=== PATIENT | male | born 1950 | race Caucasian/White ===

== ENCOUNTER → 2016-05-12 | Outpatient (CLI) | payer MEDICARE, OTHER ==
[~2016-05-12] MED LIST: ASA CHILDREN'S81 MG PO; CELEBREX200 MG PO; MIRALAX PACKET17 GM PO; OXY IR DPS5 MG PO; SENOKOT S1 TAB PO; THERAPEUTIC MUL1 TAB PO; TUMS DPS500 MG PO; TYLENOL DPS325 MG PO; ULTRAM DPS50 MG PO; XARELTO10 MG PO
== END | disposition home or self-care (01) ==
LOC: PTH.S 09:43
DX: Z01.812 Encounter for preprocedural laboratory examination (principal)

== ENCOUNTER 2016-05-20 09:50 | Inpatient (IN) | payer MEDICARE, OTHER ==
[~2016-05-20] VITALS: Ht 175.3 cm; Wt 86.0 kg
--- NOTE | 2016-05-20 13:57 | HP ---
ADMIT: 05/20/2016 RM/LOC: W.04 [facility] MR#: [id number] [address] [address] FARA VALENZUELA [address] [place] [address] Pre-OP History and Physical SEX: M AGE: 65 : 1950 DATE OF SERVICE: CHIEF COMPLAINT: Right knee pain. HISTORY PRESENT ILLNESS: The patient is a 65-year-old white male with right knee DJD. He has failed nonoperative treatment. His right knee bothers him significantly. PAST MEDICAL HISTORY: Significant for history of an arthritis. No medical complaints. MEDICATIONS: The patient takes no medications. ALLERGIES: HE HAS NO ALLERGIES. SOCIAL HISTORY: The patient smoke occasionally, drinks alcohol. PHYSICAL EXAMINATION: HEENT: Normocephalic and atraumatic. CV: Regular rate and rhythm. LUNGS: Benign abdomen. ABDOMEN: Benign. NEUROLOGIC: Awake and oriented x3. MUSCULOSKELETAL: Shows varus orientation of his knee. Tender along the medial joint line. Full extension of about 30 degrees of flexion. Pseudo medial collateral ligament laxity. IMAGING DATA: X-rays show right knee DJD with narrowing along the patellofemoral joint and also almost down to bone on bone medially. ASSESSMENT AND PLAN: Left knee degenerative joint disease. At this point in time, we will plan left total knee arthroplasty. The patient understands the risks and benefits of the surgical intervention, which include, but not limited to infection, DVT, arthrofibrosis, neurovascular injury, loosening to accept and desires to proceed. He will see his medical doctor for preoperative medical clearance with Dr. Bee and to follow him postoperatively in the hospital for anticoagulation and any medical issues that may arise. Please refer to that H and P for any in-depth medical issues or medication changes. Darrel Vegas MD/ yefri JOB #: [id number] CC: Darrel Vegas, Attending Physician Adam Bee, Family Physician
[2016-05-23] MEDS ORDERED: CELEBREX200 MG PO (14:48)
[2016-05-23] MEDS ORDERED: THERAPEUTIC MUL1 TAB PO (14:48)
[2016-05-23] MEDS ORDERED: ASA CHILDREN'S81 MG PO (14:48)
[2016-05-23] MEDS ORDERED: MIRALAX PACKET17 GM PO (14:48)
[2016-05-23] MEDS ORDERED: SENOKOT S1 TAB PO (14:49)
[2016-05-23] MEDS ORDERED: TYLENOL DPS325 MG PO (14:49)
[2016-05-23] MEDS ORDERED: ULTRAM DPS50 MG PO (14:49)
[2016-05-23] MEDS ORDERED: TUMS DPS500 MG PO (14:50)
[2016-05-23] MEDS ORDERED: OXY IR DPS5 MG PO (14:50)
[2016-05-23] MEDS ORDERED: XARELTO10 MG PO (14:50)
--- NOTE | 2016-05-27 15:15 | OR ---
ADMIT: 05/20/2016 RM/LOC: 532 [facility] MR#: [id number] [facility]#: [id number] [address] [address] FARA VALENZUELA [address] [place] [address] Operative/Delivery Room Report SEX: M AGE: 65 : 1950 SURGERY DATE: 05/20/2016 SURGEON: Darrel Vegas MD PREOPERATIVE DIAGNOSIS: Right severe knee degenerative joint disease. POSTOPERATIVE DIAGNOSIS: Right severe knee degenerative joint disease. PROCEDURE PERFORMED: Right total knee arthroplasty with a Kirk and Kirk system, size 5 posterior stabilized femoral component, size 4 tibial tray, 8 mm posterior stabilized tibial insert, size 41 patellar button. ASSISTANTS: STACY Feng and STACY Moreno ANESTHESIA: Spinal. ESTIMATED BLOOD LOSS: Minimal. FLUIDS: Per anesthetic record. COMPLICATIONS: None. DRAIN: One. TOURNIQUET TIME: 70 minutes. CONDITION: The patient returned to recovery room in fair condition. INDICATION: The patient has been having right knee pain, refractory to nonoperative treatment due to severe knee DJD. He desired total knee arthroplasty. He understood the risks and benefits of the procedure and desired to proceed. OPERATION: The patient was taken to the OR, spinal placed. He was laid in the supine position on the OR table. All bony prominences were well padded. The right lower extremity had a well-padded tourniquet placed. The right lower extremity was prepped and draped in usual sterile fashion. It was exsanguinated and tourniquet inflated to 350 mmHg. An anterior incision was made starting above the patella, carried down the medial aspect of the tibial tubercle through the skin and subcutaneous tissue with a skin knife. Medial arthrotomy was then performed with a #10 blade. The patella everted, knee flexed. ACL, PCL, medial and lateral menisci excised. Step drill was then used to open the intramedullary canal of the femur. I placed the IM alignment guide and the distal femoral cutting block down the intramedullary canal of femur set at 13 mm of resection, 5 degrees of valgus cut due to his flexion contracture and varus deformity. I pinned it to the anterior aspect of the femur. I cut the distal femur using an oscillating saw after I removed the IM alignment guide. I removed this cutting block and sized the femur at a 5. I placed a size 5 four-in-one cutting block on the distal aspect of the femur in ADMIT: 05/20/2016 RM/LOC: 532 [facility] MR#: [id number] [address] [address] [facility] [address] [place] [address] Operative/Delivery Room Report SEX: M AGE: 65 : 1950 3 degrees of external rotation, made the 4 appropriate cuts using an oscillating saw. I removed this cutting block and placed the box cutting jig on the distal aspect of the femur. I cut the box out of the distal femur using a reciprocating saw. The proximal tibia was then cut perpendicular to the long axis of the tibial shaft using a proximal tibial cutting guide and oscillating saw. The posterior aspect of the patella was cut flush with the posterior aspect of the quadriceps and patella tendons using the patella cutting saw. This was sized to a 41, step drilled with a guide. Trial components were then placed. A size 4 tibial tray, an 8 mm insert gave full extension, full flexion. Medial and lateral stability were excellent and patella was nice and stable. I step drilled the femoral component, step drilled and cruciate punched the trial tibial component. I removed the trial components. I then thoroughly injected the knee throughout with Exparel and then thoroughly irrigated the knee with bacitracin solution and dried it. I then cemented the tibia, patellar, and femoral components into place removing all extraneous cement as it dried. Once this was done, an 8 mm insert was then inserted in the tibial tray and the knee ran through a range of motion. Again, I had complete full extension, 130 degrees of flexion. Excellent ligamentous stability and patellar tracking. Thus, one deep drain was then placed. Medial arthrotomy closed using #1 Vicryl, subcutaneous tissue closed using 2-0 Vicryl, skin closed using forrest. Wounds were washed, dried, dressed with sterile Adaptic, 4x4s, ABD, Webril, and Warren wrap. Drapes removed, tourniquet let down. An ice pad was placed on top of the Warren wrap. The patient was transferred back to recovery room in fair condition. Darrel Vegas MD/ yefri JOB #: [id number] CC: Darrel Vegas, Attending Physician Adam Bee, Family Physician
--- NOTE | 2016-05-28 07:49 | CO ---
ADMIT: 05/20/2016 RM/LOC: [facility] MR#: [id number] [address] [address] FARA VALENZUELA [address] [place] [address] Consultation Report SEX: M AGE: 65 : 1950 DATE OF CONSULTATION: 05/14/2016 ATTENDING PHYSICIAN: Darrel Vegas CONSULTING PHYSICIAN: Adam Bee MD CHIEF COMPLAINT: Osteoarthritis of knee. HISTORY OF PRESENT ILLNESS: Fara is a 65-year-old male, who has had 3 to 4 year history of pain in right knee. It has gotten severe the last couple years. He is getting some pain now up into the groin area. He has been seen by Dr. Vegas, and is being admitted for right total knee arthroplasty on 05/20. He is seen today in the office for preoperative evaluation. He denies any recent health problems or illnesses other than knee issue. PAST MEDICAL HISTORY: Operations: He has had a vasectomy, otherwise, no other surgeries. No other hospitalizations. ALLERGIES: NONE. MEDICATIONS: He takes: 1. Multivitamin one daily. 2. Aspirin 81 mg daily, which is on hold for the surgery. SOCIAL HISTORY: . 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 Social drinker. Quit smoking 40 years ago. FAMILY HISTORY: Mother had breast cancer. Father at 71 of liver cancer. REVIEW OF SYSTEMS: Negative other than the right knee pain and right groin pain. He has degenerative osteoarthritis on his x-rays. He has had a previous colonoscopy that was normal. Rest of the review of systems 10-point was negative. PHYSICAL EXAMINATION: GENERAL: A 65-year-old male, appears younger than stated age. VITAL SIGNS: BP 120/84, pulse 74, temp 97.4, height 69 inches, weight 182 pounds. BMI 26.9, O2 saturation 98% on room air. HEENT: Eyes; PERRLA. EOMs intact. TMs have some cerumen and this is irrigated out. Throat is moist, not inflamed. NECK: Supple. No lymphadenopathy. No thyromegaly. No bruits heard. LUNGS: Clear to auscultation. HEART: Regular rate. No lifts, thrills, heaves, or murmur. ABDOMEN: Soft. No organomegaly or tenderness. AND RECTAL: Deferred at this time. EXTREMITIES: He has degenerative changes about both knees with some slight ADMIT: 05/20/2016 RM/LOC: [facility] MR#: [id number] [address] [address] [facility] [address] [place] [address] Consultation Report SEX: M AGE: 65 : 1950 swelling in the right knee. No significant effusion. No erythema or warmth. Range of motion is limited due to discomfort. He does walk favoring his right leg. IMPRESSION: 1. Severe degenerative osteoarthritis, right knee. 2. Prior history of kidney stones. PLAN: The patient's lab was reviewed. His hemoglobin was 15.5, white count 5.7, creatinine was 1.1. Blood sugar 102. He is okay for OR at this time. Discussed with him postoperative DVT prophylaxis, and we will proceed with Xarelto postop. Adam Bee MD/ yefri JOB #: [id number] CC: Darrel Vegas, Attending Physician Adam Bee, Family Physician
--- NOTE | 2016-06-10 14:03 | DS ---
ADMIT: 05/20/2016 RM/LOC: 532 [facility] MR#: [id number] [address] [place] [id number] FARA VALENZUELA [address] [place] [address] General Discharge Summary SEX: M AGE: 65 : 1950 ADMISSION DATE: 05/20/2016 DISCHARGE DATE: 05/22/2016 REASON FOR ADMISSION: Elective right total knee arthroplasty after failing conservative care. PREOPERATIVE DIAGNOSIS: Right knee severe degenerative joint disease. POSTOPERATIVE DIAGNOSIS: Right severe knee degenerative joint disease. PROCEDURE PERFORMED: Right total knee arthroplasty. SURGEON: Darrel Veags MD ASSISTANTS: 1. Garrick Peterson PA-C. 2. Iman Staples PA-C. ANESTHESIA: Spinal. ESTIMATED BLOOD LOSS: Minimal. COMPLICATIONS: None. ACTIVE MEDICAL PROBLEMS: Osteoarthritis. HOSPITAL COURSE: The patient was admitted on 05/20/2016, for elective right total knee arthroplasty done successfully without any complications by Dr. Vegas. The patient tolerated the procedure well. He did well with pain control with use of intraoperative Exparel and postoperative oral analgesics. As expected, the patient suffered from some acute blood-loss anemia. His hemoglobin dropped to 11.6 on 05/22/2016, but he remained hemodynamically stable and did not require blood transfusion. By postoperative day #2, he was safe and participating well with physical therapy. He was stable and ready for discharge with plans for outpatient physical therapy. DISCHARGE MEDICATIONS: 1. Aspirin 81 mg everyday. 2. Multivitamin everyday. 3. Celebrex 200 mg twice daily for a week. 4. MiraLax 17 g everyday as needed. ADMIT: 05/20/2016 RM/LOC: 532 [facility] MR#: [id number] [address] [place] [id number] FARA VALENZUELA [address] [place] [address] General Discharge Summary SEX: M AGE: 65 : 1950 5. Senokot two tablets twice daily for 30 days. 6. Tylenol 650 mg every 6 hours as needed for pain. 7. Tramadol 50 mg one to two tablets every 6 hours as needed for pain. 8. Xarelto 10 mg everyday for 10 days. 9. Oxycodone IR 5 mg one to two tablets every 4 hours as needed for breakthrough pain. 10.Tums 500 mg every two hours as needed. DISCHARGE INSTRUCTIONS: The patient was discharged with plans for outpatient physical therapy per total knee arthroplasty protocol. Follow up with the Orthopedic office in 2 weeks for wound check, in 6 weeks with x-ray, follow up with primary care as directed. STACY Moreno / Darrel Vegas MD / yefri JOB #: [id number] CC: Darrel Vegas MD, Attending Physician Adam Bee MD, Family Physician
== END 2016-05-22 16:16 | disposition home or self-care (01) | DRG 470 ==
LOC: 5MS 10:02 → WOR 10:02 → 5MS 13:48
PROVIDERS: ADMIT Orthopaedic Surgery
PROC: 0SRC0J9 Replacement of Right Knee Joint with Synthetic Substitute, Cemented, Open Approach (ICD-10-PCS; principal; 2016-05-20)
DX: M17.11 Unilateral primary osteoarthritis, right knee (principal); D62 Acute posthemorrhagic anemia; Z87.891 Personal history of nicotine dependence; Z79.82 Long term (current) use of aspirin